=== PATIENT | male | born 1950 | race Caucasian/White ===

== ENCOUNTER 2019-03-11 06:48 | Day surgery (SDC) | payer OTHER ==
[2019-03-11] MEDS ORDERED: WATER FOR IRRIG STERILE 250 ML BOTTLE IR ONE (07:36)
[2019-03-11] MEDS ORDERED: WATER FOR IRRIG STERILE 1,000 ML BOTTLE ONE (07:37)
--- NOTE | 2019-03-11 07:45 | Anesthesia Consultation ---
Anesthesia Consult and Med Hx Date of service: 03/11/19 - Airway Anesthetic Teeth Evaluation: Good ROM Head & Neck: Adequate Mental/Hyoid Distance: Adequate Mallampati Class: Class I Intubation Access Assessment: Probably Good - Pulmonary Exam CTA: Yes - Cardiac Exam Cardiac Exam: RRR - Pre-Operative Health Status ASA Pre-Surgery Classification: ASA2 Proposed Anesthetic Plan: MAC - Pulmonary Hx Smoking: Yes Hx Respiratory Symptoms: No Hx Sleep Apnea: No - Cardiovascular System Hx Hypertension: Yes - Central Nervous System Hx Psychiatric Problems: Yes (Anxiety and Depression) - Endocrine Hx Renal Disease: No Hx Liver Disease: No Hx Non-Insulin Dependent Diabetes: Yes - Other Systems Hx Alcohol Use: Yes Hx Substance Use: No Hx Obesity: No
--- NOTE | 2019-03-11 07:46 | Anesthesia Day of Surgery ---
Anesthesia Day of Surgery - Day of Surgery Patient Examined: Yes Patient H&P Reviewed: Yes Patient is NPO: Yes
[2019-03-11] MEDS ORDERED: PROPOFOL 200 MG/20 ML VIAL IV ONE ×2 (07:55)
[2019-03-11] MEDS ORDERED: SODIUM CHLORIDE 0.9% 1000 ML 1,000 ML IV SCH (08:00)
[2019-03-11] MEDS ORDERED: LIDOCAINE MPF (2%) 20 MG/1 ML VIAL 5 ML ONE (08:00)
--- NOTE | 2019-03-11 08:45 | Operative Report ---
PROCEDURE: Colonoscopy. INDICATIONS: A 68-year-old gentleman with an underlying history of diabetes mellitus type 2, hypertension, family history of cancer with his family members have had lung cancer. The patient denies any recent history of smoking. Colonoscopy was done as part of colon polyp screening. Last colonoscopy was done several years ago. DESCRIPTION OF PROCEDURE: Initial rectal exam was unremarkable. Instrument was passed through the rectum onto the cecum, which was identified by the ileocecal valve and the appendiceal orifice. The terminal ileum was intubated showed normal mucosa. The cecum was also examined on the retroverted view. No additional pathology was noted. The cecum showed normal mucosa. There was a 9-10 mm sessile polyp noted in the distal ascending colon that was removed by cold snare polypectomy and retrieved. The remaining part of the transverse colon, descending colon, and sigmoid showed normal mucosa. There were multiple small polyps, mainly in the rectum and in the rectosigmoid area, possibly hyperplastic. These were removed by cold biopsy and the rectum showed some minor internal hemorrhoid on the retroverted view. There was minimal bleeding from the polypectomy sites and no complications associated with the procedure. There was no diverticular disease noted. ASSESSMENT: Colon polyp screening, solitary ascending colon polyp removed by cold snare polypectomy, multiple rectosigmoid polyps, possibly hyperplastic, minor internal hemorrhoids. The patient will be asked to avoid aspirin and aspirin-related products for the next few days. Otherwise, resume home medicine and follow up in the office in 1-2 weeks' time. The patient's procedure was done in the GI Lab with assistance of the GI Lab team, which included CHRISTY العلي, the coordinate measuring machine technician and with assistance of anesthesia. JOB# [id number] FREDERICK/SURESH
--- NOTE | 2019-03-11 08:45 | Procedure Note ---
Date of procedure: 03/11/19 Pre-op diagnosis: Colon Polyp Screening/F/H/O Cancer Post-op diagnosis: other (Solitary, Ascending Colon Polyp (removed by cold snare polypectomy)/ Multiple,Small possibly Hyperplastic Recto-Sigmoid Polyps (removed by Cold Biopsy)/ Minor,Internal Hemorrhoid) Procedure: Colonoscopy with cold snare polypectomy and cold biopsy Anesthesia: REMEDIOS Surgeon: MOSES CURTIS Estimated blood loss: minimal Pathology: list Specimen disposition: to lab Condition: stable Disposition: same day (Avoid aspirin and NSAID for 4 days; otherwise resume home medication. Follow up ion 1 to 2 weeks ([phone]).)
[2019-03-11 08:54] VITALS: BP 101/65
== END 2019-03-11 06:49 | disposition home or self-care (01) ==
LOC: GIO 06:48
DX: Z12.11 Encounter for screening for malignant neoplasm of colon (principal); D12.2 Benign neoplasm of ascending colon; K62.1 Rectal polyp; K64.8 Other hemorrhoids; E11.9 Type 2 diabetes mellitus without complications; I10 Essential (primary) hypertension; F32.9 Major depressive disorder, single episode, unspecified; F41.9 Anxiety disorder, unspecified; M10.9 Gout, unspecified; F17.210 Nicotine dependence, cigarettes, uncomplicated; Z80.0 Family history of malignant neoplasm of digestive organs; Z79.84 Long term (current) use of oral hypoglycemic drugs; Z79.899 Other long term (current) drug therapy; Z80.1 Family history of malignant neoplasm of trachea, bronchus and lung
CPT/HCPCS: 45380; 45385; 82962; 88305; J2704; J7030